=== PATIENT | male | born 1950 | race Caucasian/White ===

== ENCOUNTER → 2018-06-27 | Outpatient (CLI) | payer OTHER | LOC: M.CT 12:31 | DX: Z13.6 Encounter for screening for cardiovascular disorders (principal) ==

== ENCOUNTER → 2018-07-23 | Outpatient (CLI) | payer OTHER | LOC: M.RAD 09:45 | DX: M17.12 Unilateral primary osteoarthritis, left knee (principal) ==

== ENCOUNTER → 2018-10-25 | Outpatient (CLI) | payer OTHER ==
--- NOTE | 2018-10-25 16:44 | CARDNUC ---
[place] [address] CARDIAC NUCLEAR IMAGING REPORT Name: KAE FRANCES Room: [facility]#: [id number] Admission: 10/25/18 Attend Phys: Thomas Raymundo, Discharge: Date of : 48 Date of Service: 10/25/18 1643 Report #: [id number] THIS REPORT FOR: //name// ADDENDUM APPROVED REPORT Study performed: 10/25/2018 07:30:00 Indication: high calcium score Patient Location: Out-Patient Stress Tech: Jesica Garcia Stress Nurse: Becky Owen RN Ht: 6 ft 0 in Wt: 208 lbs BSA: 2.17 m2 BMI: 0.00 Medical History Medical History: cad, hyperlipidemia, hypertension Medications: amlodipine, lisinopril, hctz, atorvastatin Allergies: metoprolol Cardiac Risk Factors: age, hyperlipidemia, hypertension Exercise History: Physically active Resting Data Rest SPECT myocardial perfusion imaging was performed in supine position 30 minutes following the intravenous injection of 11.2 mCi of Tc-99m Sestamibi. Time of rest injection: 08:00 The images were gated to evaluate regional wall motion and calculate left ventricular ejection fraction. Administration Route: IV Administration Site: Right Hand Pharmacologic Stress Pharmacologic stress test was performed by injecting Regadenoson 0.4 mg IV push over 10-15 seconds immediately followed by the intravenous injection of 36.0 mCi of Tc-99m Sestamibi. Time of stress injection: 09:30 Administration Route: IV Administration Site: Right Hand Heart Rate at time of stress injection: 86 bpm. Gated Stress SPECT was performed 45 minutes after stress injection. The images were gated to evaluate regional wall motion and calculate left ventricular ejection fraction. [place] [address] CARDIAC NUCLEAR IMAGING REPORT Name: KAE FRANCES Room: [facility]#: [id number] Admission: 10/25/18 Attend Phys: Thomas Raymundo, Discharge: Date of : 48 Date of Service: 10/25/18 1643 Report #: [id number] Stress Test Details Stress Test: Pharmacologic stress testing performed using 0.4 mg of regadenoson per 5 mL given IV over 10 seconds. Reason for pharmacologic stress test: arthritis. HR Max Heart Rate (APMHR): 152 bpm Resting HR: 63 bpm Target HR (85% APMHR): 129 bpm Max HR Achieved: 118 bpm % of APMHR: 77 Recovery HR: 76 bpm BP Resting BP: 154/60 mmHg Max BP: 188/69 mmHg Recovery BP: 171/77 mmHg ECG Resting ECG: Sinus Rhythm, normal EKG Stress ECG: Sinus Tachycardia ST Change: None Arrhythmia: None Recovery ECG: Sinus Rhythm Recovery ST Change: None Recovery Arrhythmia: None Clinical Reason for Termination: Completed protocol Exercise duration: 0 min sec Exercise capacity: 1 METs The patient tolerated Lexiscan infusion without significant cardiac symptoms. Stress ECG Conclusion The baseline 12-lead EKG shows normal sinus rhythm with no significant ST or T wave abnormalities. EKGs obtained during and post Lexiscan infusion show sinus rhythm and sinus tachycardia with no significant ST or T wave changes when compared to baseline. Study Quality Study: Good Artifact: No artifact Study Data At rest, the left ventricular ejection fraction was 70%.. Post stress, the left ventricular ejection was 65%.. TID = 1.06. [place] [address] CARDIAC NUCLEAR IMAGING REPORT Name: KAE FRANCES Room: [facility]#: [id number] Admission: 10/25/18 Attend Phys: Thomas Raymundo, Discharge: Date of : 48 Date of Service: 10/25/18 1643 Report #: [id number] Perfusion Normal left ventricular perfusion. Wall Motion Normal left ventricular wall motion. Nuclear Conclusion ECG Findings: negative for ischemia Clinical Findings: negative for ischemia Nuclear Findings: negative for ischemia Exercise Capacity: not assessed Left Ventricular Function: normal Risk Study: low Myocardial perfusion images show no defect to suggest infarct or ischemia. Left ventricular systolic function appears normal on gated studies. This is a low risk study. <Conclusion> The baseline 12-lead EKG shows normal sinus rhythm with no significant ST or T wave abnormalities. EKGs obtained during and post Lexiscan infusion show sinus rhythm and sinus tachycardia with no significant ST or T wave changes when compared to baseline. <ELECTRONICALLY SIGNED> By: Thomas Raymundo MD, [facility] 10/25/181642 42 42 Thomas Raymundo MD, FACC /INF
== END ==
LOC: M.NUC 09-24 08:52
DX: I25.10 Atherosclerotic heart disease of native coronary artery without angina pectoris (principal); I10 Essential (primary) hypertension; E78.5 Hyperlipidemia, unspecified; Z81.1 Family history of alcohol abuse and dependence; Z83.3 Family history of diabetes mellitus; Z82.49 Family history of ischemic heart disease and other diseases of the circulatory system; Z79.899 Other long term (current) drug therapy; Z88.8 Allergy status to other drugs, medicaments and biological substances; Z85.46 Personal history of malignant neoplasm of prostate